=== PATIENT | female | born 1955 | race Caucasian/White ===

== ENCOUNTER 2018-11-16 08:24 | Emergency (ER) | payer OTHER ==
[~2018-11-16] VITALS: Ht 157.5 cm; Wt 86.2 kg
[2018-11-16 08:24] VITALS: BP 146/67
--- NOTE | 2018-11-16 08:26 | NUR ---
Matheus gunderson in [facility] - 11/16/18 at 0827 by LEROY Pt. brought in [facility] taken to bed 8
--- NOTE | 2018-11-16 08:27 | NUR ---
Pt. biba taken to bed 8
--- NOTE | 2018-11-16 08:50 | NUR ---
PT BIB EMS FROM HOME WITH C/O OF LEFT HIP PAIN RADIATING TO LEFT LOWER LEG S/P MECHANICAL FALL LAST NIGHT. PT STATES SHE TRIPPED AND LANDED ON HER LEFT SIDE OF THE BODY. PT DENIES HITTING HER HEAD, LOC. PT AMBULATED WITH SLOW STEADY GAIT. REPORTS 9/10 PAIN AT THIS TIME. VSS. ERMD TO EVALUATE PT.
[2018-11-16] MEDS ORDERED: HYDROcodone/APAP 5/325 MG 1 TAB TAB PO ONE (08:55)
--- NOTE | 2018-11-16 08:58 | NUR ---
Pt taken to x-ray via w/c.
--- NOTE | 2018-11-16 09:07 | NUR ---
PT BACK FROM RADIOLOGY
--- NOTE | 2018-11-16 09:10 | NUR ---
FAMILY MEMBER AT BEDSIDE.
--- NOTE | 2018-11-16 09:10 | NUR ---
MEDICATION ADMINISTERED ORDERED.
--- NOTE | 2018-11-16 09:50 | NUR ---
DR FITZPATRICK RE-EVALUATING PT AT BEDSIDE.
[2018-11-16 10:05] VITALS: BP 144/72
--- NOTE | 2018-11-16 10:06 | NUR ---
Patient discharged with v/s stable. Written and verbal after care instructions given and explained. Patient alert, oriented and verbalized understanding of instructions. Ambulatory with steady gait. All questions addressed prior to discharge. ID band removed. Patient advised to follow up with PMD. Rx of [place] given. Patient educated on indication of medication including possible reaction and side effects. Opportunity to ask questions provided and answered.
== END 2018-11-16 10:06 | disposition home or self-care (01) ==
LOC: MED 08:24
DX: M25.552 Pain in left hip (principal); I10 Essential (primary) hypertension; E11.9 Type 2 diabetes mellitus without complications; J45.909 Unspecified asthma, uncomplicated; E78.5 Hyperlipidemia, unspecified; F17.210 Nicotine dependence, cigarettes, uncomplicated
CPT/HCPCS: 73502; 82948; 99283